=== PATIENT | male | born 1955 | race African-American/Black ===

== ENCOUNTER 2016-11-22 09:32 | Emergency (ER) | payer MEDICARE, MEDICAID ==
[~2016-11-22] VITALS: Ht 180.3 cm; Wt 102.0 kg
[~2016-11-22 09:32] MED LIST: AMLO10TA4 PO; CARI350T PO; HYDR-523 PO
[2016-11-22] MEDS ORDERED: TRAMADOL 50MG TABLET PO ONE (10:15)
[2016-11-22] MEDS ORDERED: KETOROLAC 60MG/2ML VIAL IM ONE (10:15)
[2016-11-22 12:00] VITALS: BP 160/98
== END 2016-11-22 13:40 | disposition home or self-care (01) ==
LOC: ER 11:05
DX: R07.89 Other chest pain (principal); M54.5 Low back pain; I10 Essential (primary) hypertension; W17.89XA Other fall from one level to another, initial encounter; Y93.89 Activity, other specified; Y92.488 Other paved roadways as the place of occurrence of the external cause
CPT/HCPCS: 71010; 93005; 96372; 99284; J1885

== ENCOUNTER 2017-01-24 20:42 | Inpatient (IN) | payer MEDICARE, MEDICAID ==
[~2017-01-24] VITALS: Ht 177.8 cm; Wt 101.6 kg
[2017-01-25] MEDS ORDERED: FENTANYL CITRATE/PF 50MCG/ML 2ML VIAL IV ONE (02:00)
[2017-01-25 02:21] LABS: CHLORIDE 109 mEq/L (98-107)
[2017-01-25 02:22] LABS: BASOPHILS % 0.6 % (0.0-2.0); EOSINOPHILS % 0.5 % (0.0-5.0); HEMATOCRIT. 40.1 % (42.0-52.0); HEMOGLOBIN. 13.6 g/dL (14.0-18.0); LYMPHOCYTES % 45.2 % (20.0-50.0); MEAN CORPUSCULAR HEMOGLOBIN 33.6 pg (28.0-32.0); MEAN PLATELET VOLUME 7.8 fl (7.4-10.4); MONOCYTES % 11.6 % (2.0-8.0); NEUTROPHILS % 42.1 % (40.0-76.0); PLATELET 194 x1000/uL (130-400); RED BLOOD CELL COUNT 4.05 mill/uL (4.7-6.1); RED CELL DISTRIBUTION WIDTH 13.5 % (11.6-14.6)
[2017-01-25 02:25] LABS: CLARITY URINE CLEAR (CLEAR); COLOR URINE DARK YELLOW (YELLOW); GLUCOSE URINE NEGATIVE (NEGATIVE); KETONES URINE TRACE (NEGATIVE); LEUKOCYTE ESTERASE URINE NEGATIVE (NEGATIVE); NITRITE URINE NEGATIVE (NEGATIVE); OCCULT BLOOD URINE 2+ (NEGATIVE); PROTEIN URINE TRACE (NEGATIVE); SPECIFIC GRAVITY URINE 1.025 (1.005-1.030)
[2017-01-25 02:31] LABS: CARBON DIOXIDE 21 mEq/L (21-32); ETHANOL BLOOD 96 mg/dL
[2017-01-25 03:09] LABS: *AMPHETAMINES SCREEN URINE NEGATIVE (NEGATIVE); *BARBITURATES SCREEN URINE NEGATIVE (NEGATIVE); *BENZODIAZEPINES SCREEN URINE NEGATIVE (NEGATIVE); *COCAINE SCREEN URINE NEGATIVE (NEGATIVE); CANNABINOID URINE SCREEN NEGATIVE (NEGATIVE); METHADONE URINE SCREEN NEGATIVE (NEGATIVE); OPIATES URINE SCREEN NEGATIVE (NEGATIVE); PHENCYCLIDINE URINE SCREEN NEGATIVE (NEGATIVE)
[2017-01-25] MEDS ORDERED: HYDROCODONE/ACETAMINOPHEN 10/325MG TABLET PO ONE (06:00)
[2017-01-25 09:15] VITALS: BP 157/87
[2017-01-25 09:45] VITALS: BP 157/87
[2017-01-25] MEDS ORDERED: ONDANSETRON HCL 4MG/2ML VIAL IV PRN (10:30)
[2017-01-25] MEDS ORDERED: DIPHENHYDRAMINE 50MG/ML VIAL IV PRN (10:30)
[2017-01-25] MEDS ORDERED: IPRATROPIUM/ALBUTEROL 0.5-3(2.5)MG/3ML NEB INH PRN (10:30)
[2017-01-25] MEDS ORDERED: MORPHINE SULFATE 2 MG/ML CPJ (NOT FOR IM USE) IV PRN (10:30)
[2017-01-25] MEDS: HYDROCODONE/ACETAMINOPHEN 5/325MG TABLET PO PRN ×3 (11:56→20:28)
[2017-01-25 12:00] VITALS: BP 151/93
[2017-01-25 16:00] VITALS: BP 152/89
[2017-01-25 20:00] VITALS: BP 153/89
[2017-01-26] VITALS: BP 145/90
[2017-01-26 04:00] VITALS: BP 152/94
[2017-01-26 06:31] LABS: BASOPHILS % 0.3 % (0.0-2.0); HEMATOCRIT. 38.1 % (42.0-52.0); HEMOGLOBIN. 13.2 g/dL (14.0-18.0); LYMPHOCYTES % 41.8 % (20.0-50.0); MEAN CORPUSCULAR HEMOGLOBIN 34.5 pg (28.0-32.0); MEAN CORPUSCULAR VOLUME 99.3 fL (80.0-94.0); MEAN PLATELET VOLUME 7.9 fl (7.4-10.4); MONOCYTES % 12.6 % (2.0-8.0); NEUTROPHILS % 44.3 % (40.0-76.0); PLATELET 161 x1000/uL (130-400); RED BLOOD CELL COUNT 3.84 mill/uL (4.7-6.1); RED CELL DISTRIBUTION WIDTH 13.2 % (11.6-14.6)
[2017-01-26 07:08] LABS: CARBON DIOXIDE 25 mEq/L (21-32); CHLORIDE 105 mEq/L (98-107); HDL CHOLESTEROL 62 mg/dL (40-59); LDL CHOLESTEROL 74 mg/dL (5-100)
[2017-01-26 08:00] VITALS: BP 154/94
[2017-01-26 12:00] VITALS: BP 127/81
[2017-01-26] MEDS ORDERED: HYDR-523 PO (14:23)
[2017-01-26] MEDS: HYDROCODONE/ACETAMINOPHEN 5/325MG TABLET PO PRN (14:37)
[2017-01-26 14:53] VITALS: BP 127/81
[2017-01-26] MEDS ORDERED: AMLODIPINE 10MG TABLET PO SCH (21:00)
== END 2017-01-26 15:48 | disposition home health service (06) | DRG 552 ==
LOC: ER 22:10 → 6EST 01-25 06:57 → EDBEDREQ 01-25 07:02 → ENRESERV 01-25 08:27
PROVIDERS: ADMIT Internal Medicine; ATTEND Internal Medicine
DX: M48.061 Spinal stenosis, lumbar region without neurogenic claudication (principal); D64.9 Anemia, unspecified; M48.07 Spinal stenosis, lumbosacral region; M51.16 Intervertebral disc disorders with radiculopathy, lumbar region; I10 Essential (primary) hypertension; M51.17 Intervertebral disc disorders with radiculopathy, lumbosacral region; M47.26 Other spondylosis with radiculopathy, lumbar region; F17.200 Nicotine dependence, unspecified, uncomplicated; G89.29 Other chronic pain; Z79.899 Other long term (current) drug therapy
CPT/HCPCS: 36415; 72131; 72148; 80053; 80061; 80305; 81001; 85025; 87040; 96374; 97161; 99291; G0482; J2270; J3010

== ENCOUNTER 2017-04-28 08:19 | Emergency (ER) | payer MEDICARE, MEDICAID ==
[~2017-04-28] VITALS: Ht 180.3 cm; Wt 102.0 kg
[2017-04-28] MEDS ORDERED: ALBUTEROL (0.083%) 2.5MG/3ML NEB HHN STA (08:43)
[2017-04-28] MEDS ORDERED: METHYLPREDNISOLONE SOD SUCC 125 MG/2 ML VIAL IV STA (08:43)
[2017-04-28] MEDS ORDERED: IPRATROPIUM BROMIDE (0.02%) 0.5MG/2.5ML NEB HHN STA (08:43)
[2017-04-28] MEDS ORDERED: SODIUM CHLORIDE 0.9% 1,000 ML IV ONE (08:54)
[2017-04-28 09:28] LABS: HEMATOCRIT. 42.2 % (42.0-52.0); HEMOGLOBIN. 14.3 g/dL (14.0-18.0); MEAN CORPUSCULAR HEMOGLOBIN 33.5 pg (28.0-32.0); MEAN CORPUSCULAR VOLUME 98.5 fL (80.0-94.0); MEAN PLATELET VOLUME 8.1 fl (7.4-10.4); PLATELET 154 x1000/uL (130-400); RED BLOOD CELL COUNT 4.28 mill/uL (4.7-6.1); RED CELL DISTRIBUTION WIDTH 13.1 % (11.6-14.6)
[2017-04-28 09:34] LABS: INR 1.1; PARTIAL THROMBOPLASTIN TIME 29.1 sec (23.4-31.0); PROTHROMBIN TIME 11.2 sec (9.4-11.6)
[2017-04-28 09:40] LABS: CARBON DIOXIDE 25 mEq/L (21-32); CHLORIDE 104 mEq/L (98-107); TROPONIN I < 0.02 ng/mL (0.00-0.04)
[2017-04-28 09:56] LABS: PLATELET ESTIMATE NORMAL
[2017-04-28 11:32] VITALS: BP 128/66
== END 2017-04-28 11:46 | disposition home or self-care (01) ==
LOC: ER 08:19
DX: J20.9 Acute bronchitis, unspecified (principal); I10 Essential (primary) hypertension; F17.200 Nicotine dependence, unspecified, uncomplicated
CPT/HCPCS: 36415; 71045; 80053; 83690; 83880; 84484; 85025; 85610; 85730; 87040; 87804; 93005; 94640; 96361; 96374; 99285; J2930; J7030; J7611

== ENCOUNTER 2017-10-26 16:03 | Emergency (ER) | payer MEDICARE, MEDICAID ==
[~2017-10-26] VITALS: Ht 177.8 cm; Wt 101.0 kg
[~2017-10-26 16:03] MED LIST changes: -CARI350T PO; +S350 PO
[2017-10-26 21:27] LABS: BASOPHILS % 0.8 % (0.0-2.0); EOSINOPHILS % 1.7 % (0.0-5.0); HEMATOCRIT. 38.1 % (42.0-52.0); HEMOGLOBIN. 12.9 g/dL (14.0-18.0); LYMPHOCYTES % 30.8 % (20.0-50.0); MEAN CORPUSCULAR HEMOGLOBIN 33.9 pg (28.0-32.0); MEAN CORPUSCULAR VOLUME 100.2 fL (80.0-94.0); MEAN PLATELET VOLUME 8.3 fl (7.4-10.4); MONOCYTES % 14.5 % (2.0-8.0); NEUTROPHILS % 52.2 % (40.0-76.0); PLATELET 186 x1000/uL (130-400); RED CELL DISTRIBUTION WIDTH 13.9 % (11.6-14.6)
[2017-10-26 21:29] LABS: CHLORIDE 106 mEq/L (98-107)
[2017-10-26 21:32] LABS: INR 0.9; PARTIAL THROMBOPLASTIN TIME 26.5 sec (23.4-31.0); PROTHROMBIN TIME 9.7 sec (9.4-11.6)
[2017-10-26 22:46] LABS: CLARITY URINE CLEAR (CLEAR); COLOR URINE YELLOW (YELLOW); KETONES URINE NEGATIVE (NEGATIVE); LEUKOCYTE ESTERASE URINE NEGATIVE (NEGATIVE); NITRITE URINE NEGATIVE (NEGATIVE); OCCULT BLOOD URINE NEGATIVE (NEGATIVE); PH URINE 5.5 (4.5-8.0); PROTEIN URINE NEGATIVE (NEGATIVE); SPECIFIC GRAVITY URINE 1.017 (1.005-1.030)
[2017-10-26 23:56] VITALS: BP 146/92
== END 2017-10-27 | disposition home or self-care (01) ==
LOC: ER 16:58
DX: R60.0 Localized edema (principal); I10 Essential (primary) hypertension; F14.10 Cocaine abuse, uncomplicated
CPT/HCPCS: 36415; 71045; 80053; 81003; 83880; 85025; 85610; 85730; 93005; 93970; 99285

== ENCOUNTER 2018-04-30 07:43 | Inpatient (IN) | payer MEDICARE, MEDICAID ==
[~2018-04-30] VITALS: Ht 172.7 cm; Wt 111.6 kg
[2018-04-30] VITALS (46 sets, daily range): BP systolic 94–162; BP diastolic 44–108
[2018-04-30] MEDS ORDERED: THROMBIN (BOVINE) 5000 UNITS/VIAL TOP ONE ×2 (08:20→11:01)
[2018-04-30] MEDS ORDERED: GELATIN SPONGE,ABSORBABLE 12-7MM SPONGE ONE ×2 (08:20→11:01)
[2018-04-30] MEDS ORDERED: LIDOCAINE HCL/EPINEPHRINE 1%-EPI 1:100,000 20 ML VIAL ONE (08:21)
[2018-04-30] MEDS ORDERED: BACITRACIN 50,000 UNITS/VIAL ONE (08:21)
[2018-04-30] MEDS ORDERED: LACTATED RINGERS 1,000 ML IV SCH (08:40)
[2018-04-30] MEDS ORDERED: MIDAZOLAM HCL 2 MG/2 ML VIAL ONE (09:15)
[2018-04-30] MEDS ORDERED: PROPOFOL 200MG/20ML VIAL IV ONE (09:15)
[2018-04-30] MEDS ORDERED: FENTANYL CITRATE/PF 50MCG/ML 2ML VIAL ONE (09:15)
[2018-04-30] MEDS ORDERED: HYDROCODONE/APAP 7.5/325MG 1 TAB TABLET PO PRN (09:30)
[2018-04-30] MEDS ORDERED: ONDANSETRON HCL 4MG/2ML INJ IV PRN ×2 (09:30→16:00)
[2018-04-30] MEDS ORDERED: SUCCINYLCHOLINE CHLORIDE 200MG/10ML IV ONE (09:42)
[2018-04-30] MEDS ORDERED: LABETALOL HCL 5MG/ML VIAL 20ML IV ONE (09:43)
[2018-04-30] MEDS ORDERED: CEFAZOLIN SODIUM 1000MG/VIAL ONE (09:43)
[2018-04-30] MEDS ORDERED: ESMOLOL HCL 10MG/ML 10ML VIAL IV ONE (09:43)
[2018-04-30] MEDS ORDERED: FENTANYL CITRATE/PF 50MCG/ML 5ML VIAL ONE (09:43)
[2018-04-30] MEDS ORDERED: NEOSTIGMINE METHYLSULFATE 1MG/ML 10 ML VIAL ONE (09:52)
[2018-04-30] MEDS ORDERED: GLYCOPYRROLATE 0.2 MG/ML 2ML VIAL ONE (09:52)
[2018-04-30] MEDS ORDERED: METOCLOPRAMIDE HCL 10MG/2ML VIAL ONE (09:53)
[2018-04-30] MEDS ORDERED: TYLENOL #4 PO (10:07)
[2018-04-30] MEDS ORDERED: IBUP-2030 PO (10:07)
[2018-04-30] MEDS ORDERED: ALBU18HF2 IH (10:07)
[2018-04-30] MEDS ORDERED: POTA20TA82 PO (10:07)
[2018-04-30] MEDS ORDERED: HYDR25TA PO (10:07)
[2018-04-30] MEDS ORDERED: CYCL10TA7 PO (10:07)
[2018-04-30] MEDS ORDERED: ROCURONIUM BROMIDE 10MG/ML VIAL 5ML IV ONE ×2 (10:09→10:11)
[2018-04-30] MEDS ORDERED: VECURONIUM BROMIDE 10 MG/VIAL IV ONE (10:11)
[2018-04-30] MEDS ORDERED: NICARDIPINE 100 MG in SODIUM CHLORIDE 0.9% 60 ML IV PRN (12:00)
[2018-04-30] MEDS: DEXT 5%/LACTATED RINGERS 1,000 ML IV SCH (12:30)
[2018-04-30] MEDS ORDERED: ONDANSETRON INJ IV PRN (12:30)
[2018-04-30] MEDS ORDERED: NALOXONE INJ IV PRN (12:30)
[2018-04-30] MEDS ORDERED: DIPHENHYDRAMINE INJ IV PRN (12:30)
[2018-04-30] MEDS ORDERED: IPRATROPIUM/ALBUTEROL 0.5-3(2.5)MG/3ML NEB HHN PRN (13:00)
[2018-04-30] MEDS ORDERED: CEFAZOLIN SODIUM 1000MG/VIAL IV SCH (14:00)
[2018-04-30] MEDS: HYDROMORPHONE PCA 10MG/50ML IV PRN (14:13)
[2018-04-30] MEDS: PANTOPRAZOLE SODIUM 40 MG/VIAL IV SCH (14:15)
[2018-04-30] MEDS: BUDESONIDE 0.5MG/2ML NEB HHN SCH ×2 (14:46→20:34)
[2018-04-30] MEDS: IPRATROPIUM/ALBUTEROL 0.5-3(2.5)MG/3ML NEB HHN SCH ×2 (14:46→20:33)
[2018-04-30] MEDS ORDERED: DOCUSATE SODIUM 100MG CAPSULE PO PRN (16:00)
[2018-04-30] MEDS ORDERED: IPRATROPIUM/ALBUTEROL 0.5-3(2.5)MG/3ML NEB INH PRN (16:00)
[2018-04-30] MEDS ORDERED: NA PHOS,M-B/NA PHOS,DI-BA ENEMA 118ML PR PRN (16:00)
[2018-04-30] MEDS: CEFAZOLIN 1000MG PREMIX 50 ML IV SCH (18:51)
[2018-05-01] VITALS (44 sets, daily range): BP systolic 100–172; BP diastolic 54–90
[2018-05-01] MEDS: IPRATROPIUM/ALBUTEROL 0.5-3(2.5)MG/3ML NEB HHN SCH ×5 (01:26→21:16)
[2018-05-01] MEDS: CEFAZOLIN 1000MG PREMIX 50 ML IV SCH ×3 (02:38→18:51)
[2018-05-01 05:28] LABS: BASOPHILS % 0.2 % (0.0-2.0); EOSINOPHILS % 0.2 % (0.0-5.0); HEMOGLOBIN. 13.2 g/dL (14.0-18.0); LYMPHOCYTES % 12.6 % (20.0-50.0); MEAN CORPUSCULAR HEMOGLOBIN 33.7 pg (28.0-32.0); MEAN CORPUSCULAR VOLUME 102.6 fL (80.0-94.0); MEAN PLATELET VOLUME 8.7 fl (7.4-10.4); MONOCYTES % 13.7 % (2.0-8.0); NEUTROPHILS % 73.3 % (40.0-76.0); PLATELET 159 x1000/uL (130-400); RED CELL DISTRIBUTION WIDTH 13.2 % (11.6-14.6)
[2018-05-01] MEDS: DEXT 5%/LACTATED RINGERS 1,000 ML IV SCH ×3 (05:31→21:28)
[2018-05-01 05:37] LABS: CHLORIDE 104 mEq/L (98-107)
[2018-05-01 05:44] LABS: LDL CHOLESTEROL 74 mg/dL (5-100)
[2018-05-01 05:45] LABS: HDL CHOLESTEROL 45 mg/dL (40-59)
[2018-05-01] MEDS: BUDESONIDE 0.5MG/2ML NEB HHN SCH ×2 (07:58→21:16)
[2018-05-01] MEDS: PANTOPRAZOLE SODIUM 40 MG/VIAL IV SCH (09:22)
[2018-05-01] MEDS ORDERED: SODIUM CHLORIDE 0.9% 500 ML IV NR (11:30)
[2018-05-01] MEDS ORDERED: MAGNESIUM 2 G PREMIX 50 ML IV SCH (13:00)
[2018-05-01] MEDS: ACETAMINOPHEN 325MG TABLET PO PRN (13:10)
[2018-05-01] MEDS ORDERED: CYCLOBENZAPRINE 10MG TABLET PO SCH (14:45)
[2018-05-01] MEDS: HYDROCODONE/APAP 7.5/325MG 1 TAB TABLET PO PRN ×2 (17:50→23:44)
[2018-05-01] MEDS: HYDROMORPHONE PCA 10MG/50ML IV PRN (18:58)
[2018-05-01] MEDS: CYCLOBENZAPRINE 10MG TABLET PO SCH (21:28)
[2018-05-02] VITALS: BP 135/66
[2018-05-02] MEDS: CEFAZOLIN 1000MG PREMIX 50 ML IV SCH ×2 (02:01→10:38)
[2018-05-02] MEDS: IPRATROPIUM/ALBUTEROL 0.5-3(2.5)MG/3ML NEB HHN SCH ×4 (02:24→21:48)
[2018-05-02 04:00] VITALS: BP 104/62
[2018-05-02] MEDS: DEXT 5%/LACTATED RINGERS 1,000 ML IV SCH ×3 (05:37→23:31)
[2018-05-02] MEDS: CYCLOBENZAPRINE 10MG TABLET PO SCH ×3 (05:51→21:33)
[2018-05-02 07:24] LABS: BASOPHILS % 0.1 % (0.0-2.0); EOSINOPHILS % 0.2 % (0.0-5.0); HEMATOCRIT. 35.4 % (42.0-52.0); HEMOGLOBIN. 11.6 g/dL (14.0-18.0); LYMPHOCYTES % 7.6 % (20.0-50.0); MEAN CORPUSCULAR HEMOGLOBIN 33.4 pg (28.0-32.0); MEAN CORPUSCULAR VOLUME 101.7 fL (80.0-94.0); MEAN PLATELET VOLUME 8.6 fl (7.4-10.4); MONOCYTES % 13.7 % (2.0-8.0); NEUTROPHILS % 78.4 % (40.0-76.0); PLATELET 161 x1000/uL (130-400); RED BLOOD CELL COUNT 3.48 mill/uL (4.7-6.1); RED CELL DISTRIBUTION WIDTH 13.2 % (11.6-14.6)
[2018-05-02 07:33] LABS: CHLORIDE 104 mEq/L (98-107)
[2018-05-02] MEDS: BUDESONIDE 0.5MG/2ML NEB HHN SCH ×2 (07:48→21:48)
[2018-05-02 08:00] VITALS: BP 122/54
[2018-05-02] MEDS: PANTOPRAZOLE SODIUM 40 MG/VIAL IV SCH (09:13)
[2018-05-02 12:00] VITALS: BP 145/86
[2018-05-02 16:00] VITALS: BP 120/69
[2018-05-02 20:00] VITALS: BP 156/73
[2018-05-03] VITALS: BP 128/75
[2018-05-03] MEDS: IPRATROPIUM/ALBUTEROL 0.5-3(2.5)MG/3ML NEB HHN SCH ×3 (02:49→14:21)
[2018-05-03 04:00] VITALS: BP 128/81
[2018-05-03] MEDS: CYCLOBENZAPRINE 10MG TABLET PO SCH ×3 (06:04→21:04)
[2018-05-03] MEDS: DEXT 5%/LACTATED RINGERS 1,000 ML IV SCH ×3 (06:05→14:03)
[2018-05-03 06:17] LABS: CLARITY URINE CLEAR (CLEAR); COLOR URINE ORANGE (YELLOW); KETONES URINE NEGATIVE (NEGATIVE); LEUKOCYTE ESTERASE URINE TRACE (NEGATIVE); OCCULT BLOOD URINE 1+ (NEGATIVE); PH URINE 5.5 (4.5-8.0); PROTEIN URINE 2+ (NEGATIVE); SPECIFIC GRAVITY URINE 1.022 (1.005-1.030); UROBILINOGEN URINE 0.2 E.U./dL (0.2-1.0)
[2018-05-03 07:12] LABS: HEMATOCRIT. 37.3 % (42.0-52.0); HEMOGLOBIN. 12.3 g/dL (14.0-18.0); MEAN CORPUSCULAR HEMOGLOBIN 33.6 pg (28.0-32.0); MEAN CORPUSCULAR VOLUME 101.9 fL (80.0-94.0); MEAN PLATELET VOLUME 9.2 fl (7.4-10.4); PLATELET 187 x1000/uL (130-400); RED BLOOD CELL COUNT 3.66 mill/uL (4.7-6.1); RED CELL DISTRIBUTION WIDTH 13.2 % (11.6-14.6)
[2018-05-03 07:16] LABS: CHLORIDE 104 mEq/L (98-107)
[2018-05-03 07:48] LABS: NITRITE URINE NEGATIVE (NEGATIVE)
[2018-05-03] MEDS: BUDESONIDE 0.5MG/2ML NEB HHN SCH (07:54)
[2018-05-03 08:00] VITALS: BP 93/66
[2018-05-03] MEDS: PANTOPRAZOLE SODIUM 40 MG/VIAL IV SCH (08:28)
[2018-05-03] MEDS ORDERED: LACTULOSE 20G/30ML UDC PO NR (10:30)
[2018-05-03] MEDS ORDERED: BISACODYL 5MG TABLET PO PRN (10:30)
[2018-05-03 11:06] LABS: PLATELET ESTIMATE NORMAL
[2018-05-03 12:00] VITALS: BP 98/66
[2018-05-03] MEDS: DOCUSATE SODIUM 250MG CAPSULE PO SCH (13:57)
[2018-05-03] MEDS: GUAIFENESIN 600MG ER TABLET PO SCH ×2 (13:57→21:04)
[2018-05-03 16:00] VITALS: BP 139/80
[2018-05-03] MEDS: HYDROCODONE/APAP 7.5/325MG 1 TAB TABLET PO PRN ×2 (17:09→21:05)
[2018-05-03 20:00] VITALS: BP 151/84
[2018-05-03] MEDS: HYDROMORPHONE HCL/PF 2MG/ML CPJ IV PRN (23:35)
[2018-05-04 00:06] VITALS: BP 131/78
[2018-05-04] MEDS: IPRATROPIUM/ALBUTEROL 0.5-3(2.5)MG/3ML NEB HHN SCH ×4 (01:39→20:00)
[2018-05-04 04:00] VITALS: BP 159/86
[2018-05-04] MEDS: CYCLOBENZAPRINE 10MG TABLET PO SCH ×3 (06:16→20:27)
[2018-05-04] MEDS: HYDROCODONE/APAP 7.5/325MG 1 TAB TABLET PO PRN (06:17)
[2018-05-04 06:49] LABS: HEMATOCRIT. 34.2 % (42.0-52.0); HEMOGLOBIN. 11.4 g/dL (14.0-18.0); MEAN CORPUSCULAR HEMOGLOBIN 33.5 pg (28.0-32.0); MEAN CORPUSCULAR VOLUME 100.5 fL (80.0-94.0); MEAN PLATELET VOLUME 8.9 fl (7.4-10.4); PLATELET 221 x1000/uL (130-400); RED CELL DISTRIBUTION WIDTH 13.3 % (11.6-14.6)
[2018-05-04] MEDS: DEXT 5%/LACTATED RINGERS 1,000 ML IV SCH ×2 (07:31→23:45)
[2018-05-04 08:00] VITALS: BP 142/93
[2018-05-04 08:51] LABS: PLATELET ESTIMATE NORMAL
[2018-05-04] MEDS: GUAIFENESIN 600MG ER TABLET PO SCH ×2 (09:46→20:28)
[2018-05-04] MEDS: FAMOTIDINE 20MG/2ML VIAL IV SCH ×2 (09:46→20:27)
[2018-05-04] MEDS: DOCUSATE SODIUM 250MG CAPSULE PO SCH (09:46)
[2018-05-04 11:49] LABS: CHLORIDE 108 mEq/L (98-107)
[2018-05-04 12:00] VITALS: BP 172/92
[2018-05-04 16:00] VITALS: BP 188/104
[2018-05-04] MEDS ORDERED: ENALAPRIL 1.25MG/ML VIAL 1ML IV PRN (16:15)
[2018-05-04 20:00] VITALS: BP 169/101
[2018-05-04] MEDS ORDERED: LABETALOL HCL 20MG/4ML CARPUJECT IV NR (21:00)
[2018-05-04] MEDS: HYDROMORPHONE HCL/PF 2MG/ML CPJ IV PRN (23:48)
[2018-05-05] VITALS: BP 149/72
[2018-05-05] MEDS: IPRATROPIUM/ALBUTEROL 0.5-3(2.5)MG/3ML NEB HHN SCH ×4 (02:21→19:53)
[2018-05-05 04:00] VITALS: BP 137/99
[2018-05-05] MEDS: CYCLOBENZAPRINE 10MG TABLET PO SCH ×3 (05:06→22:00)
[2018-05-05 05:50] LABS: HEMATOCRIT. 34.6 % (42.0-52.0); HEMOGLOBIN. 11.6 g/dL (14.0-18.0); MEAN CORPUSCULAR HEMOGLOBIN 33.8 pg (28.0-32.0); MEAN CORPUSCULAR VOLUME 100.8 fL (80.0-94.0); RED BLOOD CELL COUNT 3.44 mill/uL (4.7-6.1); RED CELL DISTRIBUTION WIDTH 13.3 % (11.6-14.6)
[2018-05-05 08:00] VITALS: BP 132/89
[2018-05-05 08:16] LABS: PLATELET 247 x1000/uL (130-400)
[2018-05-05] MEDS ORDERED: FUROSEMIDE 20MG/2ML VIAL IVP SCH (09:00)
[2018-05-05] MEDS: GUAIFENESIN 600MG ER TABLET PO SCH ×2 (09:00→21:00)
[2018-05-05] MEDS: DOCUSATE SODIUM 250MG CAPSULE PO SCH (09:00)
[2018-05-05] MEDS: FAMOTIDINE 20MG/2ML VIAL IV SCH ×2 (09:04→22:01)
[2018-05-05 12:00] VITALS: BP 147/85
[2018-05-05] MEDS ORDERED: POTASSIUM CHLORIDE INJ 40 MEQ in DEXT 5% WATER 250 ML IV NR (13:00)
[2018-05-05] MEDS: DEXT 5%/LACTATED RINGERS 1,000 ML IV SCH (14:19)
[2018-05-05 16:00] VITALS: BP 153/83
[2018-05-05 20:00] VITALS: BP 140/88
[2018-05-05] MEDS: CEFTRIAXONE 1 G PREMIX 50 ML IV SCH (22:01)
[2018-05-06] VITALS: BP 125/73
[2018-05-06] MEDS: IPRATROPIUM/ALBUTEROL 0.5-3(2.5)MG/3ML NEB HHN SCH ×4 (02:10→20:21)
[2018-05-06 04:00] VITALS: BP 148/67
[2018-05-06] MEDS: CYCLOBENZAPRINE 10MG TABLET PO SCH ×3 (05:33→21:07)
[2018-05-06] MEDS: HYDROMORPHONE HCL/PF 2MG/ML CPJ IV PRN (05:51)
[2018-05-06 05:58] LABS: HEMATOCRIT. 33.7 % (42.0-52.0); HEMOGLOBIN. 11.3 g/dL (14.0-18.0); MEAN CORPUSCULAR HEMOGLOBIN 33.7 pg (28.0-32.0); MEAN CORPUSCULAR VOLUME 100.8 fL (80.0-94.0); MEAN PLATELET VOLUME 8.5 fl (7.4-10.4); PLATELET 279 x1000/uL (130-400); RED BLOOD CELL COUNT 3.34 mill/uL (4.7-6.1); RED CELL DISTRIBUTION WIDTH 13.8 % (11.6-14.6)
[2018-05-06 08:00] VITALS: BP 112/67
[2018-05-06] MEDS: DOCUSATE SODIUM 250MG CAPSULE PO SCH (09:00)
[2018-05-06] MEDS: GUAIFENESIN 600MG ER TABLET PO SCH (09:00)
[2018-05-06] MEDS: FAMOTIDINE 20MG/2ML VIAL IV SCH ×2 (10:03→21:06)
[2018-05-06] MEDS: CEFTRIAXONE 1 G PREMIX 50 ML IV SCH ×2 (10:04→21:07)
[2018-05-06 11:58] LABS: PLATELET ESTIMATE NORMAL
[2018-05-06 12:00] VITALS: BP 112/49
[2018-05-06 12:34] LABS: CREATINE KINASE 345 IU/L (39-308)
[2018-05-06] MEDS: HYDRALAZINE 20MG/ML VIAL IV SCH ×2 (13:03→17:30)
[2018-05-06] MEDS: GUAIFENESIN 200MG TABLET GT SCH ×3 (13:03→21:07)
[2018-05-06] MEDS: SODIUM CHLORIDE 0.45% 1,000 ML IV SCH ×3 (13:05→21:29)
[2018-05-06 16:00] VITALS: BP 160/86
[2018-05-06] MEDS: METRONIDAZOLE 500 MG PREMIX 100 ML IV SCH ×2 (17:29→21:27)
[2018-05-06 20:00] VITALS: BP 134/66
[2018-05-06 22:01] LABS: CLARITY URINE CLEAR (CLEAR); COLOR URINE ORANGE (YELLOW); KETONES URINE NEGATIVE (NEGATIVE); LEUKOCYTE ESTERASE URINE 1+ (NEGATIVE); NITRITE URINE POSITIVE (NEGATIVE); OCCULT BLOOD URINE TRACE (NEGATIVE); PH URINE 5.5 (4.5-8.0); PROTEIN URINE 2+ (NEGATIVE); SPECIFIC GRAVITY URINE 1.026 (1.005-1.030)
[2018-05-07] VITALS: BP 101/55
[2018-05-07] MEDS: HYDRALAZINE 20MG/ML VIAL IV SCH ×4 (00:10→19:11)
[2018-05-07] MEDS: IPRATROPIUM/ALBUTEROL 0.5-3(2.5)MG/3ML NEB HHN SCH ×4 (01:13→21:32)
[2018-05-07 04:00] VITALS: BP 127/44
[2018-05-07] MEDS: CYCLOBENZAPRINE 10MG TABLET PO SCH ×3 (06:00→21:18)
[2018-05-07] MEDS: METRONIDAZOLE 500 MG PREMIX 100 ML IV SCH ×3 (06:46→23:56)
[2018-05-07] MEDS: GUAIFENESIN 200MG TABLET GT SCH ×3 (06:46→21:18)
[2018-05-07 07:51] VITALS: BP 128/68
[2018-05-07 07:59] LABS: HEMATOCRIT. 33.4 % (42.0-52.0); HEMOGLOBIN. 10.9 g/dL (14.0-18.0); MEAN CORPUSCULAR HEMOGLOBIN 33.1 pg (28.0-32.0); MEAN CORPUSCULAR VOLUME 101.1 fL (80.0-94.0); MEAN PLATELET VOLUME 8.8 fl (7.4-10.4); PLATELET 274 x1000/uL (130-400); RED CELL DISTRIBUTION WIDTH 13.8 % (11.6-14.6)
[2018-05-07] MEDS: DOCUSATE SODIUM 250MG CAPSULE PO SCH (08:08)
[2018-05-07] MEDS: FAMOTIDINE 20MG/2ML VIAL IV SCH ×2 (10:15→21:18)
[2018-05-07] MEDS: SODIUM CHLORIDE 0.45% 1,000 ML IV SCH ×2 (10:25→21:18)
[2018-05-07 10:55] LABS: CHLORIDE 109 mEq/L (98-107)
[2018-05-07 11:11] LABS: PHOSPHORUS 2.8 mg/dL (2.5-4.9)
[2018-05-07 12:00] VITALS: BP 136/63
[2018-05-07] MEDS ORDERED: POTASSIUM CHLORIDE INJ 40 MEQ in DEXT 5% WATER 250 ML IV NR (13:00)
[2018-05-07] MEDS: CEFEPIME 1,000 MG in DEXTROSE 5% WATER 50 ML IV SCH (14:35)
[2018-05-07 14:51] LABS: PLATELET ESTIMATE NORMAL
[2018-05-07 16:00] VITALS: BP 122/72
[2018-05-07 20:00] VITALS: BP 121/70
[2018-05-08] VITALS: BP 160/71
[2018-05-08] MEDS: CEFEPIME 1,000 MG in DEXTROSE 5% WATER 50 ML IV SCH ×2 (00:06→12:00)
[2018-05-08] MEDS: HYDRALAZINE 20MG/ML VIAL IV SCH ×4 (00:06→17:37)
[2018-05-08] MEDS: IPRATROPIUM/ALBUTEROL 0.5-3(2.5)MG/3ML NEB HHN SCH ×4 (01:17→20:00)
[2018-05-08 04:00] VITALS: BP 124/66
[2018-05-08] MEDS: METRONIDAZOLE 500 MG PREMIX 100 ML IV SCH ×3 (05:47→20:57)
[2018-05-08] MEDS: GUAIFENESIN 200MG TABLET GT SCH ×3 (05:48→20:57)
[2018-05-08] MEDS: SODIUM CHLORIDE 0.45% 1,000 ML IV SCH ×3 (05:48→20:57)
[2018-05-08] MEDS: CYCLOBENZAPRINE 10MG TABLET PO SCH ×3 (05:48→20:56)
[2018-05-08 08:36] VITALS: BP 116/70
[2018-05-08] MEDS: FAMOTIDINE 20MG/2ML VIAL IV SCH ×2 (08:41→20:56)
[2018-05-08] MEDS: DOCUSATE SODIUM 250MG CAPSULE PO SCH (09:00)
[2018-05-08 09:07] LABS: COMPLEMENT C3 207 mg/dL (82-167)
[2018-05-08 10:40] LABS: HEMATOCRIT. 31.4 % (42.0-52.0); HEMOGLOBIN. 10.3 g/dL (14.0-18.0); MEAN CORPUSCULAR HEMOGLOBIN 33.3 pg (28.0-32.0); MEAN CORPUSCULAR VOLUME 101.7 fL (80.0-94.0); MEAN PLATELET VOLUME 8.5 fl (7.4-10.4); PLATELET 232 x1000/uL (130-400); RED BLOOD CELL COUNT 3.09 mill/uL (4.7-6.1); RED CELL DISTRIBUTION WIDTH 14.1 % (11.6-14.6)
[2018-05-08 11:54] LABS: CHLORIDE 111 mEq/L (98-107)
[2018-05-08 12:01] VITALS: BP 134/67
[2018-05-08] MEDS ORDERED: POTASSIUM CHLORIDE INJ 40 MEQ in DEXT 5% WATER 250 ML IV NR (15:00)
[2018-05-08 16:30] VITALS: BP 126/75
[2018-05-08 17:08] LABS: ANTI-NUCLEAR ANTIBODIES DIRECT Negative (Negative)
[2018-05-08 19:50] LABS: PLATELET ESTIMATE NORMAL
[2018-05-08 20:41] VITALS: BP 121/56
[2018-05-08] MEDS: ACETAMINOPHEN 325MG TABLET PO PRN (21:16)
[2018-05-09] VITALS (7 sets, daily range): BP systolic 121–151; BP diastolic 62–79
[2018-05-09] MEDS: HYDRALAZINE 20MG/ML VIAL IV SCH ×4 (00:03→18:55)
[2018-05-09] MEDS: CEFEPIME 1,000 MG in DEXTROSE 5% WATER 50 ML IV SCH ×2 (00:04→13:08)
[2018-05-09] MEDS: IPRATROPIUM/ALBUTEROL 0.5-3(2.5)MG/3ML NEB HHN SCH ×3 (01:54→21:49)
[2018-05-09] MEDS: ACETAMINOPHEN 325MG TABLET PO PRN ×4 (03:26→22:25)
[2018-05-09] MEDS: METRONIDAZOLE 500 MG PREMIX 100 ML IV SCH ×3 (05:08→23:30)
[2018-05-09] MEDS: GUAIFENESIN 200MG TABLET GT SCH ×3 (05:09→22:20)
[2018-05-09] MEDS: CYCLOBENZAPRINE 10MG TABLET PO SCH ×3 (05:09→22:20)
[2018-05-09 07:48] LABS: CHLORIDE 113 mEq/L (98-107)
[2018-05-09 07:54] LABS: PHOSPHORUS 3.4 mg/dL (2.5-4.9)
[2018-05-09 08:02] LABS: HEMATOCRIT. 29.2 % (42.0-52.0); HEMOGLOBIN. 9.5 g/dL (14.0-18.0); MEAN CORPUSCULAR HEMOGLOBIN 33.2 pg (28.0-32.0); MEAN CORPUSCULAR VOLUME 102.2 fL (80.0-94.0); MEAN PLATELET VOLUME 8.7 fl (7.4-10.4); PLATELET 225 x1000/uL (130-400); RED BLOOD CELL COUNT 2.86 mill/uL (4.7-6.1); RED CELL DISTRIBUTION WIDTH 14.2 % (11.6-14.6)
[2018-05-09] MEDS: DOCUSATE SODIUM 250MG CAPSULE PO SCH (09:00)
[2018-05-09] MEDS ORDERED: POTASSIUM CHLORIDE INJ 40 MEQ in DEXT 5% WATER 250 ML IV NR (09:30)
[2018-05-09] MEDS: FAMOTIDINE 20MG/2ML VIAL IV SCH (09:51)
[2018-05-09] MEDS: SODIUM CHLORIDE 0.45% 1,000 ML IV SCH (13:10)
[2018-05-09 19:12] LABS: PLATELET ESTIMATE NORMAL
[2018-05-10 00:16] VITALS: BP 148/70
[2018-05-10] MEDS: FAMOTIDINE 20MG/2ML VIAL IV SCH ×3 (00:27→22:38)
[2018-05-10] MEDS: HYDRALAZINE 20MG/ML VIAL IV SCH ×4 (00:28→17:04)
[2018-05-10] MEDS: CEFEPIME 1,000 MG in DEXTROSE 5% WATER 50 ML IV SCH ×2 (00:28→11:44)
[2018-05-10] MEDS: IPRATROPIUM/ALBUTEROL 0.5-3(2.5)MG/3ML NEB HHN SCH ×5 (03:46→20:17)
[2018-05-10 04:00] VITALS: BP 172/66
[2018-05-10] MEDS: METRONIDAZOLE 500 MG PREMIX 100 ML IV SCH ×3 (06:02→22:37)
[2018-05-10] MEDS: CYCLOBENZAPRINE 10MG TABLET PO SCH ×3 (06:03→22:37)
[2018-05-10] MEDS: GUAIFENESIN 200MG TABLET GT SCH ×3 (06:03→22:37)
[2018-05-10] MEDS: SODIUM CHLORIDE 0.45% 1,000 ML IV SCH ×2 (06:04→22:40)
[2018-05-10 07:08] LABS: HEMATOCRIT. 30.1 % (42.0-52.0); HEMOGLOBIN. 9.8 g/dL (14.0-18.0); MEAN CORPUSCULAR HEMOGLOBIN 33.1 pg (28.0-32.0); MEAN CORPUSCULAR VOLUME 101.2 fL (80.0-94.0); MEAN PLATELET VOLUME 8.9 fl (7.4-10.4); PLATELET 235 x1000/uL (130-400); RED BLOOD CELL COUNT 2.97 mill/uL (4.7-6.1)
[2018-05-10 07:54] LABS: CHLORIDE 112 mEq/L (98-107)
[2018-05-10 08:00] VITALS: BP 140/70
[2018-05-10 10:37] LABS: PLATELET ESTIMATE NORMAL
[2018-05-10] MEDS: DOCUSATE SODIUM 250MG CAPSULE PO SCH (11:43)
[2018-05-10 12:00] VITALS: BP 158/76
[2018-05-10] MEDS ORDERED: POTASSIUM CHLORIDE INJ 60 MEQ in DEXT 5% WATER 500 ML IV NR (13:00)
[2018-05-10 17:00] VITALS: BP 142/76
[2018-05-10 20:00] VITALS: BP 130/64
[2018-05-11] VITALS: BP 134/64
[2018-05-11] MEDS: CEFEPIME 1,000 MG in DEXTROSE 5% WATER 50 ML IV SCH ×3 (00:28→23:29)
[2018-05-11] MEDS: HYDRALAZINE 20MG/ML VIAL IV SCH ×4 (00:28→18:14)
[2018-05-11] MEDS: IPRATROPIUM/ALBUTEROL 0.5-3(2.5)MG/3ML NEB HHN SCH ×4 (00:44→20:09)
[2018-05-11] MEDS: SODIUM CHLORIDE 0.45% 1,000 ML IV SCH ×2 (03:49→20:22)
[2018-05-11 04:00] VITALS: BP 118/76
[2018-05-11] MEDS: CYCLOBENZAPRINE 10MG TABLET PO SCH ×3 (05:13→20:18)
[2018-05-11] MEDS: GUAIFENESIN 200MG TABLET GT SCH ×3 (05:13→20:19)
[2018-05-11] MEDS: METRONIDAZOLE 500 MG PREMIX 100 ML IV SCH ×3 (05:28→20:23)
[2018-05-11] MEDS: ACETAMINOPHEN 325MG TABLET PO PRN (06:16)
[2018-05-11 08:00] VITALS: BP 123/84
[2018-05-11] MEDS: DOCUSATE SODIUM 250MG CAPSULE PO SCH (08:25)
[2018-05-11] MEDS: FAMOTIDINE 20MG/2ML VIAL IV SCH ×2 (08:25→20:19)
[2018-05-11 09:54] LABS: BASOPHILS % 0.4 % (0.0-2.0); EOSINOPHILS % 4.4 % (0.0-5.0); HEMOGLOBIN. 9.8 g/dL (14.0-18.0); LYMPHOCYTES % 13.4 % (20.0-50.0); MEAN CORPUSCULAR VOLUME 101.7 fL (80.0-94.0); MEAN PLATELET VOLUME 8.4 fl (7.4-10.4); MONOCYTES % 8.9 % (2.0-8.0); NEUTROPHILS % 72.9 % (40.0-76.0); PLATELET 252 x1000/uL (130-400); RED BLOOD CELL COUNT 2.95 mill/uL (4.7-6.1); RED CELL DISTRIBUTION WIDTH 14.2 % (11.6-14.6)
[2018-05-11 10:00] LABS: CHLORIDE 111 mEq/L (98-107)
[2018-05-11 10:05] LABS: PHOSPHORUS 3.1 mg/dL (2.5-4.9)
[2018-05-11 12:00] VITALS: BP 146/81
[2018-05-11 16:00] VITALS: BP 124/70
[2018-05-11] MEDS ORDERED: POTASSIUM CHLORIDE 20MEQ TABLET SR PO NR ×2 (16:00)
[2018-05-11 20:00] VITALS: BP 148/80
[2018-05-11] MEDS: MORPHINE SULFATE 4 MG/ML CPJ (NOT FOR IM USE) IV PRN (21:21)
[2018-05-12] VITALS: BP 138/80
[2018-05-12] MEDS: HYDRALAZINE 20MG/ML VIAL IV SCH ×3 (00:06→17:05)
[2018-05-12] MEDS: IPRATROPIUM/ALBUTEROL 0.5-3(2.5)MG/3ML NEB HHN SCH ×4 (00:40→22:27)
[2018-05-12 04:00] VITALS: BP 136/76
[2018-05-12] MEDS: METRONIDAZOLE 500 MG PREMIX 100 ML IV SCH ×3 (06:55→22:44)
[2018-05-12] MEDS: GUAIFENESIN 200MG TABLET GT SCH ×3 (06:56→21:04)
[2018-05-12] MEDS: SODIUM CHLORIDE 0.45% 1,000 ML IV SCH ×2 (06:56→21:06)
[2018-05-12] MEDS: CYCLOBENZAPRINE 10MG TABLET PO SCH ×3 (06:56→21:04)
[2018-05-12 07:06] LABS: BASOPHILS % 0.4 % (0.0-2.0); EOSINOPHILS % 4.7 % (0.0-5.0); HEMATOCRIT. 29.9 % (42.0-52.0); HEMOGLOBIN. 9.8 g/dL (14.0-18.0); LYMPHOCYTES % 15.5 % (20.0-50.0); MEAN CORPUSCULAR HEMOGLOBIN 33.2 pg (28.0-32.0); MEAN CORPUSCULAR VOLUME 100.9 fL (80.0-94.0); MEAN PLATELET VOLUME 8.6 fl (7.4-10.4); MONOCYTES % 8.9 % (2.0-8.0); NEUTROPHILS % 70.5 % (40.0-76.0); PLATELET 272 x1000/uL (130-400); RED BLOOD CELL COUNT 2.96 mill/uL (4.7-6.1); RED CELL DISTRIBUTION WIDTH 14.1 % (11.6-14.6)
[2018-05-12 07:09] LABS: CHLORIDE 110 mEq/L (98-107)
[2018-05-12 08:00] VITALS: BP 128/65
[2018-05-12] MEDS ORDERED: POTASSIUM CHLORIDE INJ 40 MEQ in DEXT 5% WATER 500 ML IV NR (11:00)
[2018-05-12] MEDS: FAMOTIDINE 20MG/2ML VIAL IV SCH ×2 (11:23→21:04)
[2018-05-12] MEDS: CEFEPIME 1,000 MG in DEXTROSE 5% WATER 50 ML IV SCH (11:24)
[2018-05-12] MEDS: DOCUSATE SODIUM 250MG CAPSULE PO SCH (11:24)
[2018-05-12] MEDS: HYDROCODONE/ACETAMINOPHEN 5/325MG TABLET PO PRN ×3 (11:45→21:06)
[2018-05-12 12:00] VITALS: BP 142/85
[2018-05-12 16:00] VITALS: BP 139/75
[2018-05-12 19:22] LABS: PHOSPHORUS 2.7 mg/dL (2.5-4.9)
[2018-05-12 20:00] VITALS: BP 140/81
[2018-05-13] VITALS: BP 134/69
[2018-05-13] MEDS: HYDRALAZINE 20MG/ML VIAL IV SCH ×4 (00:02→17:40)
[2018-05-13] MEDS: IPRATROPIUM/ALBUTEROL 0.5-3(2.5)MG/3ML NEB HHN SCH ×4 (02:36→21:33)
[2018-05-13 04:00] VITALS: BP 135/85
[2018-05-13] MEDS: MORPHINE SULFATE 4 MG/ML CPJ (NOT FOR IM USE) IV PRN ×2 (04:36→21:01)
[2018-05-13] MEDS: GUAIFENESIN 200MG TABLET GT SCH ×3 (05:45→21:00)
[2018-05-13] MEDS: METRONIDAZOLE 500 MG PREMIX 100 ML IV SCH ×2 (05:45→13:47)
[2018-05-13] MEDS: CYCLOBENZAPRINE 10MG TABLET PO SCH ×3 (05:45→21:01)
[2018-05-13 06:53] LABS: BASOPHILS % 0.6 % (0.0-2.0); EOSINOPHILS % 4.7 % (0.0-5.0); HEMATOCRIT. 28.7 % (42.0-52.0); HEMOGLOBIN. 9.5 g/dL (14.0-18.0); LYMPHOCYTES % 16.1 % (20.0-50.0); MEAN CORPUSCULAR HEMOGLOBIN 33.3 pg (28.0-32.0); MEAN CORPUSCULAR VOLUME 100.4 fL (80.0-94.0); MONOCYTES % 8.9 % (2.0-8.0); NEUTROPHILS % 69.7 % (40.0-76.0); PLATELET 305 x1000/uL (130-400); RED BLOOD CELL COUNT 2.86 mill/uL (4.7-6.1); RED CELL DISTRIBUTION WIDTH 14.3 % (11.6-14.6)
[2018-05-13 07:02] LABS: CHLORIDE 108 mEq/L (98-107)
[2018-05-13 08:00] VITALS: BP 132/76
[2018-05-13] MEDS: FAMOTIDINE 20MG/2ML VIAL IV SCH ×2 (08:42→21:01)
[2018-05-13] MEDS: DOCUSATE SODIUM 250MG CAPSULE PO SCH (08:42)
[2018-05-13] MEDS: HYDROCODONE/ACETAMINOPHEN 5/325MG TABLET PO PRN ×2 (08:43→13:59)
[2018-05-13] MEDS ORDERED: POTASSIUM CHLORIDE 20MEQ/PACKET PO NR (09:30)
[2018-05-13] MEDS: SODIUM CHLORIDE 0.45% 1,000 ML IV SCH (09:45)
[2018-05-13 10:23] LABS: PHOSPHORUS 3.1 mg/dL (2.5-4.9)
[2018-05-13 12:00] VITALS: BP 139/80
[2018-05-13] MEDS: CEFEPIME 1,000 MG in DEXTROSE 5% WATER 50 ML IV SCH ×3 (12:20)
[2018-05-13] MEDS: METOCLOPRAMIDE HCL 5MG TABLET PO SCH ×2 (15:16→17:40)
[2018-05-13 16:00] VITALS: BP 132/72
[2018-05-13 20:00] VITALS: BP 101/68
[2018-05-14] VITALS: BP 130/65
[2018-05-14] MEDS: SODIUM CHLORIDE 0.45% 1,000 ML IV SCH (00:15)
[2018-05-14] MEDS: HYDRALAZINE 20MG/ML VIAL IV SCH ×2 (00:16→05:10)
[2018-05-14] MEDS: CEFEPIME 1,000 MG in DEXTROSE 5% WATER 50 ML IV SCH (00:16)
[2018-05-14] MEDS: METOCLOPRAMIDE HCL 5MG TABLET PO SCH ×2 (00:16→05:10)
[2018-05-14] MEDS: HYDROCODONE/ACETAMINOPHEN 5/325MG TABLET PO PRN (00:26)
[2018-05-14] MEDS: IPRATROPIUM/ALBUTEROL 0.5-3(2.5)MG/3ML NEB HHN SCH ×3 (02:23→14:52)
[2018-05-14 04:00] VITALS: BP 124/73
[2018-05-14] MEDS: MORPHINE SULFATE 4 MG/ML CPJ (NOT FOR IM USE) IV PRN ×2 (04:51→09:41)
[2018-05-14] MEDS: GUAIFENESIN 200MG TABLET GT SCH (05:10)
[2018-05-14] MEDS: CYCLOBENZAPRINE 10MG TABLET PO SCH (05:10)
[2018-05-14 07:03] LABS: BASOPHILS % 0.2 % (0.0-2.0); EOSINOPHILS % 5.6 % (0.0-5.0); HEMATOCRIT. 29.3 % (42.0-52.0); HEMOGLOBIN. 9.8 g/dL (14.0-18.0); LYMPHOCYTES % 16.1 % (20.0-50.0); MEAN CORPUSCULAR HEMOGLOBIN 33.5 pg (28.0-32.0); MEAN CORPUSCULAR VOLUME 100.6 fL (80.0-94.0); MEAN PLATELET VOLUME 8.2 fl (7.4-10.4); NEUTROPHILS % 67.1 % (40.0-76.0); PLATELET 346 x1000/uL (130-400); RED BLOOD CELL COUNT 2.91 mill/uL (4.7-6.1); RED CELL DISTRIBUTION WIDTH 14.2 % (11.6-14.6)
[2018-05-14 07:44] LABS: CHLORIDE 106 mEq/L (98-107)
[2018-05-14 08:00] VITALS: BP 135/72
[2018-05-14] MEDS: FAMOTIDINE 20MG/2ML VIAL IV SCH (09:40)
[2018-05-14 14:59] VITALS: BP 145/79
== END 2018-05-14 15:30 | disposition home health service (06) | DRG 853 ==
LOC: OR 07:43 → MICUNO 07:44 → 7WST 05-01 20:00
PROVIDERS: ADMIT Neurological Surgery; ATTEND Neurological Surgery
PROC: 01NB0ZZ Release Lumbar Nerve, Open Approach (ICD-10-PCS; principal; 2018-05-01)
PROC: 0SG1071 Fusion of 2 or more Lumbar Vertebral Joints with Autologous Tissue Substitute, Posterior Approach, Posterior Column, Open Approach (ICD-10-PCS; 2018-05-01)
PROC: 0SG3071 Fusion of Lumbosacral Joint with Autologous Tissue Substitute, Posterior Approach, Posterior Column, Open Approach (ICD-10-PCS; 2018-05-01)
PROC: 4A11X4G Monitoring of Peripheral Nervous Electrical Activity, Intraoperative, External Approach (ICD-10-PCS; 2018-05-01)
PROC: 0D9670Z Drainage of Stomach with Drainage Device, Via Natural or Artificial Opening (ICD-10-PCS; 2018-05-06)
DX: A41.9 Sepsis, unspecified organism (principal); J96.00 Acute respiratory failure, unspecified whether with hypoxia or hypercapnia; J69.0 Pneumonitis due to inhalation of food and vomit; J44.1 Chronic obstructive pulmonary disease with (acute) exacerbation; N17.9 Acute kidney failure, unspecified; K56.609 Unspecified intestinal obstruction, unspecified as to partial versus complete obstruction; K56.7 Ileus, unspecified; M47.16 Other spondylosis with myelopathy, lumbar region; N39.0 Urinary tract infection, site not specified; M48.07 Spinal stenosis, lumbosacral region; M48.061 Spinal stenosis, lumbar region without neurogenic claudication; E87.6 Hypokalemia; D53.9 Nutritional anemia, unspecified; E88.09 Other disorders of plasma-protein metabolism, not elsewhere classified; E88.2 Lipomatosis, not elsewhere classified; F17.210 Nicotine dependence, cigarettes, uncomplicated; I12.9 Hypertensive chronic kidney disease with stage 1 through stage 4 chronic kidney disease, or unspecified chronic kidney disease; N18.9 Chronic kidney disease, unspecified; N28.1 Cyst of kidney, acquired; R26.89 Other abnormalities of gait and mobility; Z79.899 Other long term (current) drug therapy
CPT/HCPCS: 36415; 71045; 72100; 74018; 76770; 80048; 80061; 82270; 82550; 83036; 83735; 83880; 84100; 84145; 84443; 86038; 86160; 86850; 86900; 88304; 88311; 94640; 95925; 95926; 95928; 95929; 97116; 97162; 97166; 97530; 97535; 97760; C9113; J0330; J0360; J0690; J0692; J0696; J1170; J1200; J1940; J2250; J2270; J2405; J2704; J2710; J2765; J3010; J3475; J3480; J3490; J7040; J7050; J7060; J7121; J7620; J7626; J8597

== ENCOUNTER 2018-06-02 13:22 | Inpatient (IN) | payer MEDICARE, MEDICAID ==
[~2018-06-02] VITALS: Ht 177.8 cm; Wt 93.0 kg
[~2018-06-02 13:22] MED LIST changes: +ALBU18HF2 IH; -AMLO10TA4 PO; +CYCL10TA7 PO; -HYDR-523 PO; +HYDR25TA PO; +IBUP-2030 PO; +POTA20TA82 PO; +TYLENOL #4 PO
[2018-06-02] MEDS ORDERED: ONDANSETRON HCL 4MG/2ML INJ IV STA (14:17)
[2018-06-02] MEDS ORDERED: SODIUM CHLORIDE 0.9% 1,000 ML IV ONE ×2 (14:17→18:26)
[2018-06-02] MEDS ORDERED: MORPHINE SULFATE 4 MG/ML CPJ (NOT FOR IM USE) IV STA (14:17)
[2018-06-02 16:04] LABS: HEMOGLOBIN. 9.5 g/dL (14.0-18.0); MEAN CORPUSCULAR HEMOGLOBIN 31.8 pg (28.0-32.0); MEAN CORPUSCULAR VOLUME 96.9 fL (80.0-94.0); MEAN PLATELET VOLUME 7.9 fl (7.4-10.4); PLATELET 282 x1000/uL (130-400); RED CELL DISTRIBUTION WIDTH 14.7 % (11.6-14.6)
[2018-06-02 16:06] LABS: CHLORIDE 105 mEq/L (98-107)
[2018-06-02 17:56] LABS: PLATELET ESTIMATE NORMAL
[2018-06-02] MEDS ORDERED: SODIUM CHLORIDE 0.9% 500 ML IV ONE (18:30)
[2018-06-02] MEDS ORDERED: PIPERACILLIN/TAZ 3.375G PREMIX 50 ML IV ONE (18:30)
[2018-06-02] MEDS ORDERED: MORPHINE SULFATE 4 MG/ML CPJ (NOT FOR IM USE) IV ONE ×2 (18:45→19:45)
[2018-06-02 19:19] LABS: CLARITY URINE TURBID (CLEAR); COLOR URINE ORANGE (YELLOW); KETONES URINE NEGATIVE (NEGATIVE); LEUKOCYTE ESTERASE URINE 3+ (NEGATIVE); NITRITE URINE POSITIVE (NEGATIVE); OCCULT BLOOD URINE 2+ (NEGATIVE); PROTEIN URINE 3+ (NEGATIVE); SPECIFIC GRAVITY URINE 1.019 (1.005-1.030); UROBILINOGEN URINE 0.2 E.U./dL (0.2-1.0)
[2018-06-02] MEDS ORDERED: POTASSIUM CHLORIDE 20MEQ TABLET SR PO ONE (19:45)
[2018-06-03] VITALS (8 sets, daily range): BP systolic 96–149; BP diastolic 58–68
[2018-06-03] MEDS ORDERED: ONDANSETRON HCL 4MG/2ML INJ IV PRN (01:00)
[2018-06-03] MEDS ORDERED: CLONIDINE 0.1MG TABLET PO PRN (01:00)
[2018-06-03] MEDS ORDERED: PIPERACILLIN/TAZ 3.375G PREMIX 50 ML IV SCH (01:00)
[2018-06-03] MEDS ORDERED: IBUP-2029 PO (01:05)
[2018-06-03] MEDS: ACETAMINOPHEN 325MG TABLET PO PRN ×2 (01:58→15:23)
[2018-06-03] MEDS: HYDROMORPHONE HCL/PF 2MG/ML CPJ IV PRN ×2 (01:58→21:20)
[2018-06-03] MEDS: SODIUM CHLORIDE 0.9% 1,000 ML IV SCH ×3 (01:59→17:17)
[2018-06-03] MEDS: PIPERACILLIN/TAZ 2.25G PREMIX 50 ML IV SCH ×4 (03:39→21:19)
[2018-06-03 07:42] LABS: BASOPHILS % 0.1 % (0.0-2.0); EOSINOPHILS % 0.2 % (0.0-5.0); HEMATOCRIT. 28.7 % (42.0-52.0); HEMOGLOBIN. 9.3 g/dL (14.0-18.0); MEAN CORPUSCULAR HEMOGLOBIN 31.7 pg (28.0-32.0); MEAN CORPUSCULAR VOLUME 97.8 fL (80.0-94.0); MEAN PLATELET VOLUME 8.1 fl (7.4-10.4); MONOCYTES % 9.9 % (2.0-8.0); NEUTROPHILS % 80.8 % (40.0-76.0); PLATELET 242 x1000/uL (130-400); RED BLOOD CELL COUNT 2.94 mill/uL (4.7-6.1); RED CELL DISTRIBUTION WIDTH 15.3 % (11.6-14.6)
[2018-06-03 19:22] LABS: CREATINE KINASE 23 IU/L (39-308)
[2018-06-04] VITALS (7 sets, daily range): BP systolic 98–119; BP diastolic 49–74
[2018-06-04] MEDS: PIPERACILLIN/TAZ 2.25G PREMIX 50 ML IV SCH ×4 (03:40→21:14)
[2018-06-04] MEDS: SODIUM CHLORIDE 0.9% 1,000 ML IV SCH ×3 (03:51→21:15)
[2018-06-04] MEDS: HYDROMORPHONE HCL/PF 2MG/ML CPJ IV PRN ×5 (04:42→23:19)
[2018-06-04 08:13] LABS: PHOSPHORUS 2.8 mg/dL (2.5-4.9)
[2018-06-04 12:05] LABS: BASOPHILS % 0.1 % (0.0-2.0); EOSINOPHILS % 0.2 % (0.0-5.0); HEMATOCRIT. 27.1 % (42.0-52.0); HEMOGLOBIN. 8.8 g/dL (14.0-18.0); LYMPHOCYTES % 11.8 % (20.0-50.0); MEAN CORPUSCULAR HEMOGLOBIN 31.7 pg (28.0-32.0); MEAN CORPUSCULAR VOLUME 97.7 fL (80.0-94.0); MEAN PLATELET VOLUME 8.4 fl (7.4-10.4); MONOCYTES % 9.9 % (2.0-8.0); PLATELET 210 x1000/uL (130-400); RED BLOOD CELL COUNT 2.78 mill/uL (4.7-6.1); RED CELL DISTRIBUTION WIDTH 15.7 % (11.6-14.6)
[2018-06-05] MEDS: PIPERACILLIN/TAZ 2.25G PREMIX 50 ML IV SCH ×2 (03:27→08:50)
[2018-06-05] MEDS: HYDROMORPHONE HCL/PF 2MG/ML CPJ IV PRN ×4 (03:28→21:05)
[2018-06-05 04:08] VITALS: BP 110/60
[2018-06-05] MEDS: SODIUM CHLORIDE 0.9% 1,000 ML IV SCH ×2 (08:50→21:01)
[2018-06-05 11:39] VITALS: BP 120/52
[2018-06-05] MEDS ORDERED: MEROPENEM 500 MG in SODIUM CHLORIDE 0.9% 50 ML IV SCH (13:00)
[2018-06-05] MEDS: MEROPENEM 500 MG in SODIUM CHLORIDE 0.9% 50 ML IV SCH (15:57)
[2018-06-05 16:20] LABS: BASOPHILS % 0.2 % (0.0-2.0); EOSINOPHILS % 0.5 % (0.0-5.0); HEMATOCRIT. 25.9 % (42.0-52.0); HEMOGLOBIN. 8.3 g/dL (14.0-18.0); LYMPHOCYTES % 15.4 % (20.0-50.0); MEAN CORPUSCULAR HEMOGLOBIN 31.5 pg (28.0-32.0); MEAN CORPUSCULAR VOLUME 97.7 fL (80.0-94.0); MONOCYTES % 8.3 % (2.0-8.0); NEUTROPHILS % 75.6 % (40.0-76.0); PLATELET 219 x1000/uL (130-400); RED BLOOD CELL COUNT 2.65 mill/uL (4.7-6.1); RED CELL DISTRIBUTION WIDTH 16.2 % (11.6-14.6)
[2018-06-05 16:34] LABS: CHLORIDE 114 mEq/L (98-107)
[2018-06-05 20:00] VITALS: BP 140/68
[2018-06-06 00:10] VITALS: BP 135/80
[2018-06-06] MEDS: HYDROMORPHONE HCL/PF 2MG/ML CPJ IV PRN ×5 (01:52→22:25)
[2018-06-06] MEDS: MEROPENEM 500 MG in SODIUM CHLORIDE 0.9% 50 ML IV SCH ×3 (02:28→22:30)
[2018-06-06] MEDS: SODIUM CHLORIDE 0.9% 1,000 ML IV SCH (02:29)
[2018-06-06 04:00] VITALS: BP 131/71
[2018-06-06 06:29] LABS: BASOPHILS % 0.2 % (0.0-2.0); EOSINOPHILS % 0.6 % (0.0-5.0); HEMATOCRIT. 25.7 % (42.0-52.0); HEMOGLOBIN. 8.4 g/dL (14.0-18.0); LYMPHOCYTES % 21.2 % (20.0-50.0); MEAN CORPUSCULAR VOLUME 97.9 fL (80.0-94.0); MEAN PLATELET VOLUME 8.5 fl (7.4-10.4); MONOCYTES % 7.4 % (2.0-8.0); NEUTROPHILS % 70.6 % (40.0-76.0); PLATELET 265 x1000/uL (130-400); RED BLOOD CELL COUNT 2.62 mill/uL (4.7-6.1); RED CELL DISTRIBUTION WIDTH 16.2 % (11.6-14.6)
[2018-06-06 06:44] LABS: CHLORIDE 117 mEq/L (98-107)
[2018-06-06 06:49] LABS: PHOSPHORUS 3.8 mg/dL (2.5-4.9)
[2018-06-06 08:00] VITALS: BP 128/68
[2018-06-06] MEDS: SODIUM CHLORIDE 0.45% 1,000 ML IV SCH (09:45)
[2018-06-06 12:00] VITALS: BP 131/73
[2018-06-06 16:00] VITALS: BP 127/70
[2018-06-06 20:00] VITALS: BP 144/76
[2018-06-07] VITALS: BP 139/70
[2018-06-07] MEDS: HYDROMORPHONE HCL/PF 2MG/ML CPJ IV PRN ×2 (02:47→07:47)
[2018-06-07 04:00] VITALS: BP 135/77
[2018-06-07] MEDS: SODIUM CHLORIDE 0.45% 1,000 ML IV SCH (06:04)
[2018-06-07] MEDS: MEROPENEM 500 MG in SODIUM CHLORIDE 0.9% 50 ML IV SCH (07:46)
[2018-06-07 08:03] LABS: BASOPHILS % 0.4 % (0.0-2.0); EOSINOPHILS % 0.6 % (0.0-5.0); HEMATOCRIT. 27.2 % (42.0-52.0); LYMPHOCYTES % 23.7 % (20.0-50.0); MEAN CORPUSCULAR HEMOGLOBIN 31.8 pg (28.0-32.0); MEAN CORPUSCULAR VOLUME 96.5 fL (80.0-94.0); MEAN PLATELET VOLUME 8.3 fl (7.4-10.4); MONOCYTES % 8.7 % (2.0-8.0); NEUTROPHILS % 66.6 % (40.0-76.0); PLATELET 385 x1000/uL (130-400); RED BLOOD CELL COUNT 2.82 mill/uL (4.7-6.1); RED CELL DISTRIBUTION WIDTH 16.1 % (11.6-14.6)
[2018-06-07 08:04] VITALS: BP 127/73
[2018-06-07 08:17] LABS: CHLORIDE 113 mEq/L (98-107)
[2018-06-07 09:32] VITALS: BP 127/73
== END 2018-06-07 10:10 | disposition home or self-care (01) | DRG 871 ==
LOC: ER 13:22 → 6WST 20:58 → EDBEDREQ 21:01 → EDBEDREQTM 21:01 → ENRESERV 22:35
PROVIDERS: ADMIT Internal Medicine; ATTEND Internal Medicine
DX: A41.50 Gram-negative sepsis, unspecified (principal); E43 Unspecified severe protein-calorie malnutrition; N17.0 Acute kidney failure with tubular necrosis; N39.0 Urinary tract infection, site not specified; N12 Tubulo-interstitial nephritis, not specified as acute or chronic; R65.20 Severe sepsis without septic shock; J44.9 Chronic obstructive pulmonary disease, unspecified; E87.6 Hypokalemia; D64.9 Anemia, unspecified; F10.21 Alcohol dependence, in remission; F17.210 Nicotine dependence, cigarettes, uncomplicated; N18.9 Chronic kidney disease, unspecified; N28.1 Cyst of kidney, acquired; G89.29 Other chronic pain; I12.9 Hypertensive chronic kidney disease with stage 1 through stage 4 chronic kidney disease, or unspecified chronic kidney disease; M48.061 Spinal stenosis, lumbar region without neurogenic claudication; A49.8 Other bacterial infections of unspecified site; M54.5 Low back pain; Z68.29 Body mass index [BMI] 29.0-29.9, adult; Z82.49 Family history of ischemic heart disease and other diseases of the circulatory system
CPT/HCPCS: 36415; 71045; 74176; 76770; 80048; 82550; 83605; 83735; 83880; 84100; 84484; 87077; 87186; 93005; 96361; 96374; 96375; 97161; 99285; C1893; J1170; J2185; J2270; J2405; J2543; J7030

== ENCOUNTER 2021-02-28 04:23 | Emergency (ER) | payer MEDICARE, MEDICAID ==
[~2021-02-28] VITALS: Ht 177.8 cm; Wt 102.0 kg
[~2021-02-28 04:23] MED LIST changes: -ALBU18HF2 IH; -IBUP-2030 PO; -POTA20TA82 PO; -S350 PO; -TYLENOL #4 PO
[2021-02-28] MEDS ORDERED: KETOROLAC 60MG/2ML VIAL IM ONE (06:00)
[2021-02-28] MEDS ORDERED: HYDROCODONE/ACETAMINOPHEN 5/325MG TABLET PO ONE (06:00)
[2021-02-28 08:00] VITALS: BP 159/86
[2021-02-28] MEDS ORDERED: IBUP-2028 MT (08:33)
[2021-02-28] MEDS ORDERED: HYDR-4001 MT (08:33)
[2021-03-02] MEDS ORDERED: ALBUMIN HUMAN 25GM/100ML (25%) IV ONE (09:47)
== END 2021-02-28 08:54 | disposition home or self-care (01) ==
LOC: ER 04:23
DX: M25.511 Pain in right shoulder (principal); J45.909 Unspecified asthma, uncomplicated; I10 Essential (primary) hypertension; F17.290 Nicotine dependence, other tobacco product, uncomplicated; Z79.899 Other long term (current) drug therapy; Z98.890 Other specified postprocedural states
CPT/HCPCS: 29105; 73030; 96372; 99283; 99406; J1885; P9047

== ENCOUNTER 2025-02-21 12:33 | Emergency (ER) | payer MEDICARE, MEDICAID ==
[~2025-02-21] VITALS: Ht 172.7 cm; Wt 75.0 kg
[~2025-02-21 12:33] MED LIST changes: +ALBU18HF2 IH; +AMOX1TAB15 MT; -CYCL10TA7 PO; +DEXTL PO; +FAMO20TA8 PO; +FERR-63 PO; +FLUT1DIS3 INH; +FLUT9.9S BOTHNSTRLS; +FOLI-43 PO; -HYDR25TA PO; +MIDO5TAB4 PO; +POTA-205 PO; +THIA100T72 PO; +TOPUD PO
[2025-02-21 12:42] VITALS: TEMP 37; O2SAT 99
[2025-02-21 14:08] VITALS: TEMP 98.6
[2025-02-21] MEDS: IBUPROFEN 600MG TABLET PO ONE (14:08)
[2025-02-21] MEDS: ACETAMINOPHEN 325MG TABLET PO ONE (14:08)
[2025-02-21] MEDS ORDERED: IBUP-2028 PO (14:31)
[2025-02-21 15:19] VITALS: BP 111/75; PULSE 84; RESP 16; O2SAT 100
== END 2025-02-21 15:25 | disposition home or self-care (01) ==
LOC: ER 12:33
DX: L02.212 Cutaneous abscess of back [any part, except buttock and flank] (principal); I10 Essential (primary) hypertension; Z79.51 Long term (current) use of inhaled steroids; Z79.899 Other long term (current) drug therapy; Z98.890 Other specified postprocedural states
CPT/HCPCS: 99283